=== PATIENT | male | born 1950 ===

== ENCOUNTER 2018-05-04 10:16 | Outpatient (CLI) | payer OTHER | END 2018-05-04 10:19 | disposition home or self-care (01) | LOC: EKG 10:16 | DX: M17.12 Unilateral primary osteoarthritis, left knee (principal); Z01.810 Encounter for preprocedural cardiovascular examination ==

== ENCOUNTER 2018-05-11 09:00 | Inpatient (IN) | payer OTHER ==
[~2018-05-11] VITALS: Ht 167.6 cm; Wt 83.0 kg
[2018-05-12] MEDS ORDERED: VASOTEC20 M1 PO (11:43)
[2018-05-12] MEDS ORDERED: VASOTEC5 MG PO (11:43)
[2018-05-12] MEDS ORDERED: ASA81 MG PO (11:44)
[2018-05-12] MEDS ORDERED: ZOCOR20 MG PO (11:44)
[2018-05-12] MEDS ORDERED: FORTAMET1000 MG PO (11:44)
[2018-05-20] MEDS ORDERED: OXYC1TAB9 PO (07:35)
[2018-05-20] MEDS ORDERED: XARELTO10 MG PO (07:35)
[2018-05-20] MEDS ORDERED: INTEGRA PLUS C1 EACH PO (07:35)
== END 2018-05-20 14:53 | DRG 470 ==
LOC: EDUNIT# 09:00 → O/R 05-18 05:45 → SURG 05-18 05:45
PROVIDERS: Orthopaedic Surgery Sports Medicine
PROC: 0SRD0J9 Replacement of Left Knee Joint with Synthetic Substitute, Cemented, Open Approach (ICD-10-PCS; principal; 2018-05-18 02:30)
DX: M17.12 Unilateral primary osteoarthritis, left knee (principal); I69.354 Hemiplegia and hemiparesis following cerebral infarction affecting left non-dominant side